=== PATIENT | male | born 1985 | race Caucasian/White ===

== ENCOUNTER 2016-02-18 13:07 | Emergency (ER) | payer OTHER ==
[~2016-02-18] VITALS: Ht 177.8 cm; Wt 127.0 kg
[~2016-02-18 13:07] MED LIST: IBUPROFEN800 M1 PO
[2016-02-18 13:10] VITALS: BP 128/79
--- NOTE | 2016-02-18 14:15 | ED SKIN/ALLERGY COMPLAINT ---
History of Present Illness General Chief Complaint: Skin Rash/ Abcess Stated Complaint: ABCESS UNDER RIGHT ARM Source: patient Exam Limitations: no limitations Vital Signs & Intake/Output Vital Signs & Intake/Output Vital Signs Date Time Temp Pulse Resp B/P Pulse O2 O2 Flow FiO2 Ox Delivery Rate 02/17 1330 Room Air 02/17 1310 98.2 98 20 128/79 98 Room Air Allergies Coded Allergies: No Known Allergies (02/18/16) Reconcile Medications Cephalexin (Keflex) 250 MG CAPSULE 1 CAP PO 4 TIMES/DAY CELLULITIS Ibuprofen 800 MG TABLET 1 TAB PO 4 TIMES/DAY PRN PAIN Sulfamethoxazole/Trimethoprim (Bactrim 400-80 MG Tablet) 400 MG-80 MG TABLET 1 TAB PO BID CELLULITIS Triage Note: PT TO ED C/O ABSCESS UNDER RIGHT ARM X 4-5 WEEKS. PT WENT TO WALK IN AND WAS TOLD TO COME TO ED. DENIES FEVERS AT HOME. AFEBRILE NOW. Triage Nurses Notes Reviewed? yes Onset: Gradual Duration: getting worse Timing: recent history Severity: severe Severity Numbers: 7 HPI: Patient is a 30-year-old male who presents to emergency room with a 2 week history of gradually worsening right armpit tender swollen region with surrounding erythema. Patient denies any active discharge. Denies any fever chills. Denies any history of abscess in the past. Patient was seen and evaluated by urgent care facility and primary care doctor and was advised to present to emergency room and was no incision and drainage was performed. Patient currently is not on antibiotics (CAESAR TORRES) Past History Travel History Traveled to [place] past 21 day No Medical History Any Pertinent Medical History? see below for history Neurological: NONE EENT: NONE Cardiovascular: NONE Respiratory: NONE Gastrointestinal: GERD Hepatic: NONE Renal: NONE Musculoskeletal: NONE Psychiatric: NONE Endocrine: NONE Blood Disorders: NONE Cancer(s): NONE Surgical History Surgical History: non-contributory, N Psychosocial History What is your primary language Croatian Tobacco Use: Current Not Daily ETOH Use: denies use Illicit Drug Use: denies illicit drug use Family History Hx Contributory? No (CAESAR TORRES) Review of Systems Review of Systems Constitutional: Reports: no symptoms. EENTM: Reports: no symptoms. Respiratory: Reports: no symptoms. Cardiovascular: Reports: no symptoms. GI: Reports: no symptoms. Genitourinary: Reports: no symptoms. Musculoskeletal: Reports: no symptoms. Skin: Reports: see HPI, lumps. Neurological/Psychological: Reports: no symptoms. Hematologic/Endocrine: Reports: no symptoms. Immunologic/Allergic: Reports: no symptoms. All Other Systems: Reviewed and Negative (CAESAR TORRES) Physical Exam Physical Exam General Appearance: no apparent distress, alert Skin: intact Comments: Well-developed well-nourished person in no acute distress HEENT: Normal EENT exam Neck: Supple, no lymphadenopathy, normal range of motion without pain or tenderness Back: Nontender, no CVA tenderness. Full range of motion Cardiovascular: Regular rate and rhythms no murmurs rubs or gallops, normal JVP Respiratory: Chest nontender. No respiratory distress.breath sounds clear to auscultation bilaterally Extremity: No edema, no calf tenderness to palpation, normal and equal pulses. Neuro: Alert oriented x3, motor sensory normal, . Skin: No appreciable rash on exposed skin, skin is warm and dry. Psych: Mood and affect is normal, memory and judgment is normal. Diagram Body: 1) Right axilla noted 5 cm tender FLUCTUANCE with no active discharge with surrounding erythema (CAESAR TORRES) Progress Differential Diagnosis: abscess/cellulitis, allergic reaction, anaphylaxis, angioedema, asthma, contact dermatitis, drug reaction, erythema multiforme, lyme disease, meningitis/sepsis, piyriasis rosea, RMSF Plan of Care: Orders Procedure Date/time Status TRUNK AREA CULTURE 02/17 1416 Active Microbiology 02/17 1425 TRUNK: Culture & Sensitivity - RECD 02/17 1425 TRUNK: Gram Stain - RECD Culture was sent Patient tolerated incision and drainage well Upon discharge patient looks well no apparent distress and will comply with discharge instructions and had no questions (CAESAR TORRES) Departure Departure Disposition: HOME OR SELF CARE Condition: Stable Clinical Impression Primary Impression: Abscess of axilla, right Secondary Impressions: Cellulitis of axilla, right Referrals: TERRELL HERRERA MD (PCP/Family) Referred to [facility] as new patient No Additional Instructions: As discussed begin to apply warm compresses to the area to promote discharge. Begin [id number] ibuprofen if needed for pain and inflammation. Begin the prescription of Keflex and Bactrim as directed for the full course this prescription is waiting at your [facility] pharmacy. Return to emergency room in 2 days for wound recheck. If the bandage and Tegaderm fall off please apply as directed with the extra bandages provided to you in the emergency room. If symptoms worsen prior return to the emergency room. Keep area dry and clean and she can Departure Forms: Customer Survey General Discharge Information Prescriptions: Current Visit Scripts Cephalexin (Keflex) 1 CAP PO 4 TIMES/DAY #40 CAP Sulfamethoxazole/Trimethoprim (Bactrim 400-80 MG Tablet) 1 TAB PO BID #20 TAB (CAESAR TORRES) PA/AIR BRAKE TESTER Co-Sign Statement Statement: ED Attending supervision documentation- [] I saw and evaluated the patient. I have also reviewed all the pertinent lab results and diagnostic results. I agree with the findings and the plan of care as documented in the PA's/AIR BRAKE TESTER's documentation. [X] I have reviewed the ED Record and agree with the PA's/AIR BRAKE TESTER's documentation. [] Additions or exceptions (if any) to the PAs/AIR BRAKE TESTER's note and plan are summarized below: [] (ALBARO MORALES DO) Procedures Incision and Drainage Site: RIGHT AXILLA Blade Size: 15 I & D Procedure: Yes: betadine prep, sterile drapes applied, sterile dressing applied, wick placed. Progress: Using sterile technique and Betadine application initially I injected 7 mL of 2% lidocaine for local anesthesia using a 15 blade I made a 1 cm incision and which significant purulent discharge was excised culture was obtained. I THEN injected sterile water WITH Betadine -60 mL to the incision site FOR IRRIGATION. WICK Was applied Gauze and Tegaderm were applied. Patient tolerated well. (CAESAR TORRES)
[2016-02-18] MEDS ORDERED: BACTRIM 400-801 EACH PO (14:18)
[2016-02-18] MEDS ORDERED: KEFLEX250 M1 PO (14:18)
== END 2016-02-18 14:29 ==
LOC: ERH 13:07
DX: L02.411 Cutaneous abscess of right axilla (principal); L03.111 Cellulitis of right axilla
CPT/HCPCS: 87070